=== PATIENT | male | born 1990 | race Caucasian/White ===

== ENCOUNTER 2020-05-13 15:05 | Emergency (ER) | payer OTHER ==
[2020-05-13 15:12] VITALS: BP 182/69
[2020-05-13] MEDS ORDERED: DEXAMETHASONE SOD PHOS INJ 10 MG/1 ML VIAL IM ONE (17:00)
[2020-05-13] MEDS ORDERED: OXYCODONE-ACETAMINOPHEN 5-325 MG TABLET PO ONE (17:00)
[2020-05-13] MEDS ORDERED: DIAZEPAM 5 MG TABLET PO ONE (17:00)
--- NOTE | 2020-05-13 17:01 | ER Document Report ---
ED Medical Screen (RME) - General Chief Complaint: Back Pain Stated Complaint: BACK PAIN Time Seen by Provider: 05/13/20 16:59 Mode of Arrival: Wheelchair Information source: Patient Notes: 30-year-old male patient presents emergency department chief complaint of low back pain that radiates down his right buttock and leg. Patient reports pain ongoing for last 2 days, worsening this morning. He states he is having urinary incontinence and leakage due to this. He is otherwise healthy. Denies any numbness or tingling to his legs. He appears to be in moderate discomfort. I have greeted and performed a rapid initial assessment of this patient. A comprehensive ED assessment and evaluation of the patient, analysis of test results and completion of the medical decision making process will be conducted by additional ED providers. I have specifically instructed the patient or family members with the patient to immediately return to any nursing staff should anything change in the patient's condition or with their chief complaint. TRAVEL OUTSIDE OF THE [place] IN LAST 30 DAYS: No - Related Data Allergies/Adverse Reactions: No Known Allergies Allergy (Verified 05/13/20 17:07) Past Medical History - Social History Frequency of alcohol use: Occasional - Past Medical History Cardiac Medical History: Reports: Hx Hypertension Neurological Medical History: Reports: Hx Migraine Endocrine Medical History: Reports: Hx Diabetes Mellitus Type 1 Traumatic Medical History: Reports: Hx Traumatic Brain Injury Past Surgical History: Reports: Hx Oral Surgery - Immunizations Hx Diphtheria, Pertussis, Tetanus Vaccination: Yes Physical Exam - Vital signs Vitals: Temp Pulse Resp BP Pulse Ox 97.6 F 78 16 182/69 H 99 05/13/20 15:11 05/13/20 15:11 05/13/20 15:11 05/13/20 15:11 05/13/20 15:11 Course - Vital Signs Vital signs: Temp Pulse Resp BP Pulse Ox 97.6 F 78 16 182/69 H 99 05/13/20 15:11 05/13/20 15:11 05/13/20 15:11 05/13/20 15:11 05/13/20 15:11
--- NOTE | 2020-05-13 19:10 | RADIOLOGY REPORT (SQ) ---
EXAM DESCRIPTION: MRI LUMBAR SPINE WITHOUT IMAGES COMPLETED DATE/TIME: 05/13/2020 6:24 pm REASON FOR STUDY: low back pain, urinary incontinence COMPARISON: None. TECHNIQUE: Sagittal and Axial imaging includes T1, T2, STIR and gradient echo sequences. Coronal T2/ HASTE imaging. LIMITATIONS: None. FINDINGS: VISUALIZED UPPER ABDOMEN: Limited evaluation. No acute or suspicious findings suggested. SEGMENTATION: No transitional anatomy. The lowest well-developed disc space is labeled L5-S1. ALIGNMENT: Anatomic. VERTEBRAE: Intact. BONE MARROW: Normal. No marrow replacement or reactive changes. DISC SIGNAL: Mild desiccation of the L4-L5 and L5-S1 discs. POSTERIOR ELEMENTS: Generally intact. No pars defect evident. HARDWARE: None in the spine. CORD AND CONUS: Normal in size and signal intensity. Conus at the appropriate level. SOFT TISSUES: No aortic aneurysm seen. No bulky retroperitoneal adenopathy or mass. No paraspinal mas s or fluid. L1-L2: No significant spinal stenosis or exit foraminal stenosis. L2-L3: No significant spinal stenosis or exit foraminal stenosis. L3-L4: No significant spinal stenosis or exit foraminal stenosis. L4-L5: Posterior disc bulge with central component. Mild facet arthropathy. Moderate spinal stenosi s, particularly affecting the lateral recesses. Mild exit foraminal stenosis. L5-S1: Right paracentral disc protrusion with severe right lateral recess stenosis and impingement of the right S1 nerve root. Mild exit foraminal stenosis. LOWER THORACIC: Incompletely imaged. No stenosis seen. SACRUM: Visualized upper sacrum intact. OTHER: No other significant findings. IMPRESSION: DEGENERATIVE CHANGES IN THE LOWER LUMBAR SPINE DESCRIBED. RIGHT PARACENTRAL DISC PRO TRUSION AT L5-S1 CAUSES SEVERE RIGHT LATERAL RECESS STENOSIS AND IMPINGEMENT OF THE RIGHT S1 NERVE RO OT. TECHNICAL DOCUMENTATION: JOB ID: [id number] 2010 [employer]- All Rights Reserved Reading location - IP/workstation name: [email or web address]
[2020-05-14] MEDS ORDERED: ONDANSETRON HCL INJ/PF 4 MG/2 ML SDV IV ONE (03:24)
[2020-05-14] MEDS ORDERED: MORPHINE SULFATE 10 MG/ML INJ IV ONE (03:24)
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
== END 2020-05-14 03:49 | disposition home or self-care (01) ==
LOC: ER 15:05
DX: M47.26 Other spondylosis with radiculopathy, lumbar region (principal); M47.27 Other spondylosis with radiculopathy, lumbosacral region; M48.07 Spinal stenosis, lumbosacral region; I10 Essential (primary) hypertension; R32 Unspecified urinary incontinence; E10.9 Type 1 diabetes mellitus without complications; Z79.899 Other long term (current) drug therapy
CPT/HCPCS: 99285; 96372; 96374; 96375; 72148; J2270; J2405; J1100